=== PATIENT | female | born 2000 | race Caucasian/White ===

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

== ENCOUNTER 2020-12-01 07:57 | Emergency (ER) | payer OTHER, SELFPAY ==
[~2020-12-01] VITALS: Ht 160 cm; Wt 69.5 kg
[~2020-12-01 07:57] MED LIST: BACT800T5 PO; HYDR1OIN23 TOP; INDO50CA91 PO; MIRA3350 PO; MUPI2OI EXT; NAPR-885 PO; NEXP1IMP
--- OUTSIDE RECORDS SUMMARY | 2020-12-01 08:05 | CCD ---
Author Author [facility] Organization [facility] Address Unknown Phone Unavailable Care Team Providers Care Tuck Pointer Helper Name Role Phone Jaimie Hernández Unavailable Unavailable Re-disclosure Warning The records that you are about to access may contain information from federally-assisted alcohol or drug abuse programs. If such information is present, then the following federally mandated warning applies: This information has been disclosed to you from records protected by federal confidentiality rules (42 CFR part 2). The federal rules prohibit you from making any further disclosure of this information unless further disclosure is expressly permitted by the written consent of the person to whom it pertains or as otherwise permitted by 42 CFR part 2. A general authorization for the release of medical or other information is NOT sufficient for this purpose. The Federal rules restrict any use of the information to criminally investigate or prosecute any alcohol or drug abuse patient.The records that you are about to access may contain highly sensitive health information, the redisclosure of which is protected by Article 27-F of the [facility] Public Health law. If you continue you may have access to information: Regarding HIV / AIDS; Provided by facilities licensed or operated by the [facility] Office of Mental Health; or Provided by the [facility] Office for People With Developmental Disabilities. If such information is present, then the following [facility] mandated warning applies: This information has been disclosed to you from confidential records which are protected by state law. State law prohibits you from making any further disclosure of this information without the specific written consent of the person to whom it pertains, or as otherwise permitted by law. Any unauthorized further disclosure in violation of state law may result in a fine or long-term sentence or both. A general authorization for the release of medical or other information is NOT sufficient authorization for further disc losure. Family History Family Member Name Family Member Gender Family Member Status Date o f Status Description Data Source(s) Unknown Unknown Problem [facility] ([facility]) Encounters Encounter Providers Location Date Indications Data Source(s ) Outpatient Attender: Jaimie Edgar RODRIGUEZ 08/22/2020 12:02:05 AM ED T [facility] Medications Medication Brand Name Start Date Product Form Dose Route Admi nistrative Instructions Pharmacy Instructions Status Indications Reaction Description Data Source(s) 250 mg 11/11/2020 12:00:00 AM EST tablet 6 TAKE TWO TABLETS BY MOUTH AT ONCE ON THE FIRST DAY THEN TAKE ONE DAILY THEREAFTER TAKE TWO TABLETS BY MOUTH AT ONCE ON THE FIRST DAY THEN TAKE ONE DAILY THEREAFTER SOLD: 11/11/2020 [email or web address] 25 mcg 01/31/2020 12:00:00 AM EDT tablet 90 TAKE 1 TABLET BY MOUTH ONCE DAILY IN THE MORNING TAKE 1 TABLET BY MOUTH ONCE DAILY IN THE MORNING SOLD: 02/01/2020 [email or web address] Insurance Providers Payer name Policy type / Coverage type Policy ID Covered constitution party ID Covered constitution party's relationship to wells Policy Wells Plan Information SELF PAY ONLY [id number] SP [id number] [id number] Family Dependent [id number] [place] HU[place]NA [id number] FA2 [id number] MEDICAID [id number] SP [id number] [facility] [id number] FA2 [id number] N REGIONAL CLAIMS DIANA -O/P [id number] 19 [id number] D [facility] P [id number] P [id number]
[2020-12-01] MEDS ORDERED: DEPO150I (08:06)
[2020-12-01] MEDS ORDERED: LEVO25TA5 (08:06)
[2020-12-01] MEDS ORDERED: NS 1,000 ML IV ONE ×2 (08:30→12:15)
[2020-12-01] MEDS ORDERED: ONDANSETRON 4MG/2ML VIAL IV ONE (08:30)
--- OUTSIDE RECORDS SUMMARY | 2020-12-01 08:33 | CCD ---
Author Author [facility] Organization [facility] Address Unknown Phone Unavailable Care Team Providers Care Web Marketing Specialist Name Role Phone Jaimie Hernández Unavailable Unavailable [...] is protected by Article 27-F of the [facility] Public Health law. If you continue you may have access to information: Regarding HIV / AIDS; Provided by facilities licensed or operated by the [facility] Office of Mental Health; or Provided by the [facility] Office for People With Developmental Disabilities. If such information is present, then the following [facility] mandated warning applies: This information has been [...] law may result in a fine or [place] [facility] sentence or both. A general authorization for the release of medical or other information is NOT sufficient authorization for further disc losure. Family History Family Member Name Family Member Gender Family Member Status Date o f Status Description Data Source(s) Unknown Unknown Problem [facility] ([facility]) Encounters Encounter Providers Location Date Indications Data Source(s ) [facility]: [facility] 12:02:05 AM ED T [facility] Medications Medication Brand Name Start [...] THEN TAKE ONE DAILY THEREAFTER SOLD: 11/11/2020 [facility] 25 mcg 01/31/2020 12:00:00 AM EDT tablet 90 TAKE 1 TABLET BY MOUTH ONCE DAILY IN THE MORNING TAKE 1 TABLET BY MOUTH ONCE DAILY IN THE MORNING SOLD: 02/01/2020 [facility] Insurance Providers Payer name Policy type / Coverage type Policy ID Covered republican ID Covered republican's relationship to wells Policy Wells Plan Information [facility] HUMANA [id number] FA2 [id number] SELF PAY ONLY [id number] SP [id number] [facility] Commercial [id number] Family Dependent [id number] MEDICAID [id number] SP [id number] [facility] [id number] FA2 [id number] N REGIONAL CLAIMS DIANA -O/P [id number] 19 [id number] D [facility] [employer] [facility] [place] P [id number] P [id number]
[2020-12-01 09:08] LABS: BASO % 0.1 % (0.0-1.0); HEMOGLOBIN 13.8 g/dl (12.0-15.5); LYMPH # 0.7 10^3/uL (1.5-5.0); MEAN CORPUSCULAR HEMOGLOBIN 30.1 pg (27.0-33.0); MEAN CORPUSCULAR HGB CONC 32.9 g/dl (32.0-36.5); MEAN CORPUSCULAR VOLUME 91.5 fl (80.0-96.0); MONO % 8.4 % (0.0-5.0); NEUTROPHILS # 20.5 10^3/uL (1.5-8.5); NEUTROPHILS % 87.9 % (36.0-66.0); PLATELET COUNT, AUTOMATED 274 10^3/uL (150-450); RED BLOOD COUNT 4.59 10^6/uL (4.00-5.40); WHITE BLOOD COUNT 23.3 10^3/uL (4.0-10.0)
[2020-12-01 09:29] LABS: BLOOD UREA NITROGEN 9 MG/DL (7-18); CALCIUM LEVEL 9.4 MG/DL (8.5-10.1); CARBON DIOXIDE LEVEL 25 MEQ/L (21-32); CHLORIDE LEVEL 102 MEQ/L (98-107); CREATININE FOR GFR 0.82 MG/DL (0.55-1.30); GLOMERULAR FILTRATION RATE > 60.0 (>60); GLUCOSE, FASTING 123 MG/DL (70-100); POTASSIUM SERUM 3.7 MEQ/L (3.5-5.1); SODIUM LEVEL 135 MEQ/L (136-145)
[2020-12-01] MEDS ORDERED: cefTRIAXone SOD 1 GM in D5W MINI-BAG PLUS 50 ML IV ONE (10:30)
[2020-12-01] MEDS ORDERED: ISOVUE-370 76% 100ML VIAL As Ordered ONE (12:00)
[2020-12-01] MEDS ORDERED: ACETAMINOPHEN 325 MG TAB PO ONE (12:15)
--- NOTE | 2020-12-01 12:26 | REP ---
INDICATION: abd/low back pain fever and leukocytosis COMPARISON: None. TECHNIQUE: CT Scan of the abdomen and pelvis was performed with intravenous administration of 100 cc of Isovue 370, without oral contrast. FINDINGS: Lung bases: Unremarkable. Liver: Normal Gallbladder: Unremarkable. Spleen: Normal. Adrenals: Normal. Pancreas: Normal. Kidneys: There are scattered ill-defined nonenhancing areas in both kidneys compatible bilateral pyelonephritis. There is no hydronephrosis bilaterally. Small and large bowel: Unremarkable. Free fluid: None. Abdominal aorta: No aneurysm or dissection. Adenopathy: None. Appendix: Not inflamed. Osseous structures: Unremarkable. Pelvis: No mass. IMPRESSION: Findings compatible with bilateral pyelonephritis. <Electronically signed by Brant Main > 12/01/20 [id number]
[2020-12-01] MEDS ORDERED: LEVO750T13 PO (14:33)
[2020-12-01 14:43] VITALS: BP 111/53
== END 2020-12-01 14:47 | disposition home or self-care (01) ==
LOC: M ED 07:57
DX: N12 Tubulo-interstitial nephritis, not specified as acute or chronic (principal); N39.0 Urinary tract infection, site not specified; F17.210 Nicotine dependence, cigarettes, uncomplicated
CPT/HCPCS: 74177; 80048; 81001; 83605; 84702; 85025; 87086; 96361; 96365; 96366; 99284; J0696; J2405; Q9967; U0002

== ENCOUNTER 2020-12-02 12:56 | Emergency (ER) | payer OTHER ==
[~2020-12-02] VITALS: Ht 160 cm; Wt 68.5 kg
[~2020-12-02 12:56] MED LIST changes: +DEPO150I; +LEVO25TA5; +LEVO750T13 PO
[2020-12-02] MEDS ORDERED: NS 1,000 ML IV ONE (13:45)
[2020-12-02 14:02] LABS: BASO % 0.2 % (0.0-1.0); EOS % 0.2 % (0.0-3.0); HEMATOCRIT 39.2 % (36.0-47.0); HEMOGLOBIN 12.5 g/dl (12.0-15.5); LYMPH # 1.6 10^3/uL (1.5-5.0); LYMPH % 9.2 % (24.0-44.0); MEAN CORPUSCULAR HEMOGLOBIN 29.4 pg (27.0-33.0); MEAN CORPUSCULAR HGB CONC 31.9 g/dl (32.0-36.5); MEAN CORPUSCULAR VOLUME 92.2 fl (80.0-96.0); MONO # 2.2 10^3/uL (0.0-0.8); MONO % 12.9 % (0.0-5.0); NEUTROPHILS # 13.1 10^3/uL (1.5-8.5); PLATELET COUNT, AUTOMATED 219 10^3/uL (150-450); RED BLOOD COUNT 4.25 10^6/uL (4.00-5.40); WHITE BLOOD COUNT 17.1 10^3/uL (4.0-10.0)
[2020-12-02 14:34] LABS: ALBUMIN 2.8 GM/DL (3.2-5.2); ALT/SGPT 14 U/L (12-78); BILIRUBIN,DIRECT 0.1 MG/DL (0.0-0.2); BILIRUBIN,TOTAL 0.5 MG/DL (0.2-1.0); BLOOD UREA NITROGEN 7 MG/DL (7-18); CALCIUM LEVEL 8.5 MG/DL (8.5-10.1); CARBON DIOXIDE LEVEL 26 MEQ/L (21-32); CHLORIDE LEVEL 108 MEQ/L (98-107); CREATININE FOR GFR 0.62 MG/DL (0.55-1.30); GLOMERULAR FILTRATION RATE > 60.0 (>60); GLUCOSE, FASTING 98 MG/DL (70-100); LIPASE 48 U/L (73-393); POTASSIUM SERUM 4.4 MEQ/L (3.5-5.1); SODIUM LEVEL 137 MEQ/L (136-145); TOTAL PROTEIN 6.4 GM/DL (6.4-8.2)
[2020-12-02 16:41] VITALS: BP 118/64
== END 2020-12-02 16:44 | disposition home or self-care (01) ==
LOC: M ED 12:56
DX: N10 Acute pyelonephritis (principal); N39.0 Urinary tract infection, site not specified; K21.9 Gastro-esophageal reflux disease without esophagitis; Z79.899 Other long term (current) drug therapy; Z79.3 Long term (current) use of hormonal contraceptives

== ENCOUNTER 2020-12-26 18:52 | Emergency (ER) | payer OTHER ==
[~2020-12-26] VITALS: Ht 160 cm; Wt 66.8 kg
--- OUTSIDE RECORDS SUMMARY | 2020-12-26 18:58 | CCD ---
Author Author [facility] Organization [facility] Address Unknown Phone Unavailable Care Team Providers Care Shipfitter Helper Name Role Phone Jaimie Hernández Unavailable [...] is protected by Article 27-F of the [facility] Public Health law. If you continue you may have access to information: Regarding HIV / AIDS; Provided by facilities licensed or operated by the [facility] Office of Mental Health; or Provided by the [facility] Office for People With Developmental Disabilities. If such information is present, then the following [facility] mandated warning applies: This information has been [...] law may result in a fine or halfway sentence or both. A general authorization for the release of medical or other information is NOT sufficient authorization for further disc losure. Family History Family Member Name Family Member Gender Family Member Status Date o f Status Description Data Source(s) Unknown Unknown Problem [facility] ([facility]) Encounters Encounter Providers Location Date Indications Data Source(s ) [facility]: [facility] 12:02:05 AM ED T [facility] Medications Medication Brand Name Start Date Product Form Dose Route Admi nistrative Instructions Pharmacy Instructions Status Indications Reaction Description Data Source(s) 750 mg 12/01/2020 12:00:00 AM EST tablet 7 TAKE ONE TABLET BY MOUTH EVERY DAY TAKE ONE TABLET BY MOUTH EVERY DAY SOLD: 12/01/2020 [facility] 250 mg 11/11/2020 12:00:00 AM EST tablet 6 TAKE TWO TABLETS BY MOUTH AT ONCE ON THE FIRST DAY THEN TAKE ONE DAILY THEREAFTER TAKE TWO TABLETS BY MOUTH AT ONCE ON THE FIRST DAY THEN TAKE ONE DAILY THEREAFTER SOLD: 11/11/2020 [facility] 25 mcg 01/31/2020 12:00:00 AM EDT tablet 90 TAKE 1 TABLET BY MOUTH ONCE DAILY IN THE MORNING TAKE 1 TABLET BY MOUTH ONCE DAILY IN THE MORNING SOLD: 02/01/2020 [facility] Insurance Providers Payer name Policy type / Coverage type Policy ID Covered republican ID Covered republican's relationship to wells Policy Wells Plan Information [facility] HUMANA [id number] FA2 [id number] SELF PAY ONLY [id number] SP [id number] [facility] Commercial [id number] Family Dependent [id number] MEDICAID [id number] SP [id number] [facility] [id number] FA2 [id number] N REGIONAL CLAIMS DIANA -O/P [id number] 19 [id number] D [employer] [facility] P [id number] P [id number] Results ID Date Data Source [id number] 12/01/2020 08:52:00 AM EST [facility] Name Value Range Interpretation Code Description Data Beatrice rce(s) Supporting Document(s) SARS coronavirus 2 RNA [Presence] in Res piratory specimen by ELI with probe detection NEGATIVE [facility] This lab was ordered by [facility] a nd reported by [facility]. Procedure
[2020-12-26] MEDS ORDERED: ACETAMINOPHEN 500 MG TAB PO ONE (20:00)
--- OUTSIDE RECORDS SUMMARY | 2020-12-26 20:51 | CCD ---
Author Author [facility] Organization [facility] Address Unknown Phone Unavailable Care Team Providers Care Video Specialist Name Role Phone Jaimie Hernández Unavailable [...] is protected by Article 27-F of the [facility] Public Health law. If you continue you may have access to information: Regarding HIV / AIDS; Provided by facilities licensed or operated by the [facility] Office of Mental Health; or Provided by the [facility] Office for People With Developmental Disabilities. If such information is present, then the following [facility] mandated warning applies: This information has [...] law may result in a fine or alf sentence or both. A general authorization for the release of medical or other information is NOT sufficient authorization for further disc losure. Family History Family Member Name Family Member Gender Family Member Status Date o f Status Description Data Source(s) Unknown Unknown Problem [facility] ([facility]) Encounters Encounter Providers Location Date Indications Data Source(s ) [facility]: [facility] 12:02:05 AM ED T [facility] Medications Medication Brand Name Start Date Product Form Dose Route Admi nistrative Instructions Pharmacy Instructions Status Indications Reaction Description Data Source(s) 750 mg 12/01/2020 12:00:00 AM EST tablet 7 TAKE ONE TABLET BY MOUTH EVERY DAY TAKE ONE TABLET BY MOUTH EVERY DAY SOLD: 12/01/2020 [facility] 250 mg 11/11/2020 12:00:00 AM EST [...] ONCE DAILY IN THE MORNING SOLD: 02/01/2020 [facility] Insurance Providers Payer name Policy type / Coverage type Policy ID Covered republican ID Covered republican's relationship to wells Policy Wells Plan Information [facility] HUMANA [id number] FA2 [id number] SELF PAY ONLY [id number] SP [id number] [facility] Commercial [id number] Family Dependent [id number] MEDICAID [id number] SP [id number] [facility] [id number] FA2 [id number] N REGIONAL CLAIMS DIANA -O/P [id number] 19 [id number] D [employer] [facility] P [id number] P [id number] Results ID Date Data Source [id number] 12/01/2020 08:52:00 AM EST [facility] Name Value Range Interpretation Code Description Data Beatrice rce(s) Supporting Document(s) SARS coronavirus 2 RNA [Presence] in Res piratory specimen by ELI with probe detection NEGATIVE [facility] This lab was ordered by [facility] a nd reported by [facility]. Procedure
--- NOTE | 2020-12-26 20:59 | REPVR ---
PROCEDURE INFORMATION: Exam: XR Left Hand Exam date and time: 12/26/2020 7:01 PM Age: 20 years old Clinical indication: Pain; Hand; Left; Additional info: Injury TECHNIQUE: Imaging protocol: XR Left hand. Views: 3 or more views. COMPARISON: No relevant prior studies available. FINDINGS: Bones/joints: The osseous structures are intact. No dislocation. Soft tissues: Mild soft tissue swelling of the proximal ring finger and slight soft tissue swelling about the PIP joint of the middle finger. IMPRESSION: 1. Mild soft tissue swelling of the proximal ring finger and slight soft tissue swelling about the PIP joint of the middle finger. 2. Otherwise negative left hand. No fracture or dislocation. Electronically signed by: Heraclio Plunkett On 12/26/2020 20:59:09 PM
[2020-12-26 21:04] VITALS: BP 125/67
== END 2020-12-26 21:12 | disposition home or self-care (01) ==
LOC: M ED 18:52
DX: S67.195A Crushing injury of left ring finger, initial encounter (principal); W23.0XXA Caught, crushed, jammed, or pinched between moving objects, initial encounter; Y92.89 Other specified places as the place of occurrence of the external cause; Y99.0 Civilian activity done for income or pay

== ENCOUNTER 2020-12-29 12:43 | Emergency (ER) | payer OTHER ==
[~2020-12-29] VITALS: Ht 160 cm; Wt 66.7 kg
[2020-12-29 12:44] VITALS: BP 121/67
--- OUTSIDE RECORDS SUMMARY | 2020-12-29 12:54 | CCD ---
Author Author [facility] Organization [facility] Address Unknown Phone Unavailable Care Team Providers Care Assembler Name Role Phone Jaimie Hernández Unavailable Unavailable [...] is protected by Article 27-F of the [facility] Public Health law. If you continue you may have access to information: Regarding HIV / AIDS; Provided by facilities licensed or operated by the [facility] Office of Mental Health; or Provided by the [facility] Office for People With Developmental Disabilities. If such information is present, then the following [facility] mandated warning applies: This information has [...] law may result in a fine or intermediate sentence or both. A general authorization for the release of medical or other information is NOT sufficient authorization for further disc losure. Family History Family Member Name Family Member Gender Family Member Status Date o f Status Description Data Source(s) Unknown Unknown Problem [facility] ([facility]) Encounters Encounter Providers Location Date Indications Data Source(s ) [facility]: [facility] 12:02:[address] [facility] Medications Medication Brand Name Start Date Product Form Dose Route Admi nistrative Instructions Pharmacy Instructions Status Indications Reaction Description Data Source(s) 750 mg 12/01/2020 12:00:00 AM EST tablet 7 TAKE ONE TABLET BY MOUTH EVERY DAY TAKE ONE TABLET BY MOUTH EVERY DAY SOLD: 12/01/[address] [facility] 250 mg 11/11/2020 12:00:00 AM EST [...] ONCE DAILY IN THE MORNING SOLD: 02/01/[address] [facility] Insurance Providers Payer name Policy type / Coverage type Policy ID Covered libertarian ID Covered libertarian's relationship to wells Policy Wells Plan Information [facility] HUMANA [id number] FA2 [id number] SELF PAY ONLY [id number] SP [id number] [facility] Commercial [id number] Family Dependent [id number] MEDICAID [id number] SP [id number] [facility] [id number] FA2 [id number] N REGIONAL CLAIMS DIANA -O/P [id number] 19 [id number] D [employer] [facility] P [id number] P [id number] Results ID Date Data Source [id number] 12/01/2020 08:52:00 AM EST [facility] Name Value Range Interpretation Code Description Data Beatrice rce(s) Supporting Document(s) SARS coronavirus 2 RNA [Presence] in Res piratory specimen by ELI with probe detection NEGATIVE [facility] This lab was ordered by [facility] a nd reported by [facility]. Procedure
--- OUTSIDE RECORDS SUMMARY | 2020-12-29 13:59 | CCD ---
Author Author [facility] Organization [facility] Address Unknown Phone Unavailable Care Team Providers Care Features Reporter Name Role Phone Jaimie Hernández Unavailable Unavailable [...] is protected by Article 27-F of the [facility] Public Health law. If you continue you may have access to information: Regarding HIV / AIDS; Provided by facilities licensed or operated by the [facility] Office of Mental Health; or Provided by the [facility] Office for People With Developmental Disabilities. If such information is present, then the following [facility] mandated warning applies: This information has [...] law may result in a fine or senior care sentence or both. A general authorization for the release of medical or other information is NOT sufficient authorization for further disc losure. Family History Family Member Name Family Member Gender Family Member Status Date o f Status Description Data Source(s) Unknown Unknown Problem [facility] ([facility]) Encounters Encounter Providers Location Date Indications Data Source(s ) [facility]: [facility] 12:02:05 AM ED T [facility] Medications Medication Brand Name Start Date Product Form Dose Route Admi nistrative Instructions Pharmacy Instructions Status Indications Reaction Description Data Source(s) 750 mg 12/01/2020 12:00:00 AM EST tablet 7 TAKE ONE TABLET BY MOUTH EVERY DAY TAKE ONE TABLET BY MOUTH EVERY DAY SOLD: 12/01/2020 [facility] 250 mg 11/11/2020 12:00:00 AM EST [...] ONCE DAILY IN THE MORNING SOLD: 02/01/2020 [facility] Insurance Providers Payer name Policy type / Coverage type Policy ID Covered constitution party ID Covered constitution party's relationship to wells Policy Wells Plan Information [facility] HUMANA [id number] FA2 [id number] SELF PAY ONLY [id number] SP [id number] [facility] Commercial [id number] Family Dependent [id number] MEDICAID [id number] SP [id number] [facility] [id number] FA2 [id number] N REGIONAL CLAIMS DIANA -O/P [id number] 19 [id number] D [employer] [facility] P [id number] P [id number] Results ID Date Data Source [id number] 12/01/2020 08:52:00 AM EST [facility] Name Value Range Interpretation Code Description Data Beatrice rce(s) Supporting Document(s) SARS coronavirus 2 RNA [Presence] in Res piratory specimen by ELI with probe detection NEGATIVE [facility] This lab was ordered by [facility] a nd reported by [facility]. Procedure
== END 2020-12-29 14:30 | disposition home or self-care (01) ==
LOC: M ED 12:43
DX: S60.222A Contusion of left hand, initial encounter (principal); W23.0XXA Caught, crushed, jammed, or pinched between moving objects, initial encounter; Y92.89 Other specified places as the place of occurrence of the external cause; E03.9 Hypothyroidism, unspecified

== ENCOUNTER 2021-10-04 17:09 | Emergency (ER) | payer MEDICAID, OTHER ==
[~2021-10-04] VITALS: Ht 160 cm; Wt 69.5 kg
--- OUTSIDE RECORDS SUMMARY | 2021-10-04 17:14 | CCD ---
Author Author [facility] Organization [facility] Address Unknown Phone Unavailable Care Team Providers Care Equipment Validation Engineer Name Role Phone Feola, T Bertha PA Unavailable Unavailable Feola, T Bertha PA Unavailable Unavailable Feola, T Bertha PA Unavailable Unavailable Feola, T Bertha PA Unavailable Unavailable Feola, T Bertha PA Unavailable Unavailable Feola, T Bertha PA Unavailable Unavailable Feola, T Bertha PA Unavailable Unavailable Feola, T Bertha PA Unavailable Unavailable Feola, T Bertha PA Unavailable Unavailable Feola, T Bertha PA Unavailable Unavailable Feola, T Bertha PA Unavailable Unavailable Feola, T Bertha PA Unavailable Unavailable Feola, T Bertha PA Unavailable Unavailable Feola, T Bertha PA Unavailable Unavailable Feola, T Bertha PA Unavailable Unavailable Feola, T Bertha PA Unavailable Unavailable Feola, T Bertha PA Unavailable Unavailable Feola, T Bertha PA Unavailable Unavailable Feola, T Bertha PA Unavailable Unavailable Feola, T Bertha PA Unavailable Unavailable Feola, T Bertha PA Unavailable Unavailable Feola, T Bertha PA Unavailable Unavailable Feola, T Bertha PA Unavailable Unavailable Feola, T Bertha PA Unavailable Unavailable Feola, T Bertha PA Unavailable Unavailable Feola, T Bertha PA Unavailable Unavailable Feola, T Bertha PA Unavailable Unavailable Feola, T Bertha PA Unavailable Unavailable Feola, T Bertha PA Unavailable Unavailable Feola, T Bertha PA Unavailable Unavailable Feola, T Bertha PA Unavailable Unavailable Feola, T Bertha PA Unavailable Unavailable Feola, T Bertha PA Unavailable Unavailable Feola, T Bertha PA Unavailable Unavailable Feola, T Bertha PA Unavailable Unavailable Feola, T Bertha PA Unavailable Unavailable Feola, T Bertha PA Unavailable Unavailable Feola, T Bertha PA Unavailable Unavailable Feola, T Bertha PA Unavailable Unavailable Feola, T Bertha PA Unavailable Unavailable Feola, T Bertha PA Unavailable Unavailable Jaimie Hernández Unavailable Unavailable Re-disclosure Warning The [...] is protected by Article 27-F of the [facility] [place] Public Health law. If you continue you may have access to information: Regarding HIV / AIDS; Provided by facilities licensed or operated by the [facility] [place] Office of Mental Health; or Provided by the [facility] [place] Office for People With Developmental Disabilities. If such information is present, then the following [facility] [place] mandated warning applies: This information has been [...] law may result in a fine or chcf sentence or both. A general authorization for the release of medical or other information is NOT sufficient authorization for further disc losure. Family History Family Member Name Family Member Gender Family Member Status Date o f Status Description Data Source(s) Unknown Unknown Problem [facility] ([facility]) Encounters Encounter Providers Location Date Indications Data Source(s ) Outpatient Attender: Bertha Yepez DANIKA 021 05:15:49 PM EDT - 08/31/2021 06:54:11 PM EDT [facility] ([facility] ) Outpatient Attender: Jaimie RODRIGUEZ 08/22/2020 12:02:05 AM ED T [facility] Immunizations Vaccine Date Status Description Data Source(s) COVID-19 VACCINE Moderna 09/29/2021 12:00:00 AM EST completed [facility] Vaccine Series Complete: NOThis Data was Submitted to [facility] Via [employer]. Medications Medication Brand Name Start Date Product Form Dose Route Admi nistrative Instructions Pharmacy Instructions Status Indications Reaction Description Data Source(s) 875 mg 06/05/2021 12:00:00 AM EDT tablet 14 TAKE ONE TABLET BY MOUTH EVERY 12 HOURS FOR 7 DAYS TAKE ONE TABLET BY MOUTH EVERY 12 HOURS FOR 7 DAYS [facility] 875 mg 04/24/2021 12:00:00 AM EDT tablet 14 TAKE ONE TABLET BY MOUTH EVERY 12 HOURS FOR 7 DAYS TAKE ONE TABLET BY MOUTH EVERY 12 HOURS FOR 7 DAYS [facility] 750 mg 12/01/2020 12:00:00 AM EST tablet 7 TAKE ONE TABLET BY MOUTH EVERY DAY TAKE ONE TABLET BY MOUTH EVERY DAY SOLD: 12/01/2020 [facility] 250 mg 11/11/2020 12:00:00 AM EST tablet 6 TAKE TWO TABLETS BY MOUTH AT ONCE ON THE FIRST DAY THEN TAKE ONE DAILY THEREAFTER TAKE TWO TABLETS BY MOUTH AT ONCE ON THE FIRST DAY THEN TAKE ONE DAILY THEREAFTER SOLD: 11/11/2020 [facility] Insurance Providers Payer name Policy type / Coverage type Policy ID Covered alliance party ID Covered alliance party's relationship to wells Policy Wells Plan Information [employer] emp [id number] Employe e [id number] Needs Medical Insurance Commercial Insurance Co. [id number] Employee [id number] Medicaid Medicaid [id number] Self [id number] / [id number] Parent 00 [id number] MEDICAID [id number] SP [id number] [place] [id number] FA2 [id number] N REGIONAL CLAIMS [place] -O/P [id number] 19 [id number] D [employer] [place] P [id number] P [id number] [facility] HUMANA [id number] FA2 [id number] HUMANA [facility] REG O [id number] S [id number] SELF PAY ONLY [id number] SP [id number] [facility] Commercial [id number] Family Dependent [id number] Problems, Conditions, and Diagnoses No Information Surgeries/Procedures No Information Results ID Date Data Source [id number] 08/31/2021 06:00:00 PM EDT [facility] Name Value Range Interpretation Code Description Data Beatrice rce(s) Supporting Document(s) SARS-CoV-2 RNA Resp Ql ELI+probe DETECTED [facility] This lab was ordered by [facility] and reported by [facility]. ID Date Data Source [id number] 12/01/2020 08:52:00 AM EST [facility] Name Value Range Interpretation Code Description Data Beatrice rce(s) Supporting Document(s) SARS coronavirus 2 RNA [Presence] in Res piratory specimen by ELI with probe detection NEGATIVE [facility] This lab was ordered by [facility] a nd reported by [facility]. Procedure Social History No Information
--- NOTE | 2021-10-04 17:42 | REP ---
INDICATION: fall injury COMPARISON: None. TECHNIQUE: AP, lateral, bilateral oblique views. FINDINGS: Lateral swelling consistent with inversion injury. No acute fracture or dislocation. Ankle mortise intact. IMPRESSION: Swelling. No acute fracture or dislocation. <Electronically signed by Julio Tracy > 10/04/21 [id number]
--- OUTSIDE RECORDS SUMMARY | 2021-10-04 21:37 | CCD ---
Author Author [facility] Organization [facility] Address Unknown Phone Unavailable Care Team Providers Care Detective Sergeant Name Role Phone Feola, T Bertha PA [...] is protected by Article 27-F of the [facility] Public Health law. If you continue you may have access to information: Regarding HIV / AIDS; Provided by facilities licensed or operated by the [facility] Office of Mental Health; or Provided by the [facility] Office for People With Developmental Disabilities. If such information is present, then the following [facility] mandated warning applies: This information has [...] law may result in a fine or snf sentence or both. A general authorization for [...] EDT - 08/31/2021 06:54:11 PM EDT [facility] ([facility] ) Outpatient Attender: Jaimie RODRIGUEZ 08/22/2020 12:02:05 AM ED T [facility] Immunizations Vaccine Date Status Description Data Source(s) COVID-19 VACCINE Moderna 09/29/2021 12:00:00 AM EST completed [facility] Vaccine Series Complete: NOThis Data was Submitted to [facility] Via [employer]. Medications Medication Brand Name Start Date Product [...] Plan Information [employer] emp [id number] Employe e [id number] Needs Medical Insurance Commercial Insurance Co. 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 [id number] Medicaid Medicaid [id number] Self [id number] / [id number] Parent 00 [id number] [facility] Commercial [id number] Family Dependent [id number] MEDICAID [id number] SP [id number] [facility] [id number] FA2 [id number] N REGIONAL CLAIMS [place] -O/P [id number] 19 [id number] D [employer] [place] P [id number] P [id number] [place] [id number] SP [id number] V [id number] [place] [id number] FA2 [id number] [employer] [place] REG O [id number] S [id number] SELF PAY ONLY [id number] SP [id number] Problems, Conditions, and Diagnoses No Information Surgeries/Procedures No Information Results ID Date Data Source [id number] 08/31/2021 06:00:00 PM EDT [facility] Name Value Range Interpretation Code Description Data Beatrice rce(s) Supporting Document(s) SARS-CoV-2 RNA Resp Ql ELI+probe DETECTED [facility] This lab was ordered by [facility] and reported by [facility]. ID Date Data Source [id number] 12/01/2020 08:52:00 AM EST [facility] Name Value Range Interpretation Code Description Data Beatrice rce(s) Supporting Document(s) SARS coronavirus 2 RNA [Presence] in Res piratory specimen by ELI with probe detection NEGATIVE [facility] This lab was ordered by [facility] a nd reported by [facility]. Procedure Social History No Information
[2021-10-04 21:43] VITALS: BP 112/58
== END 2021-10-04 21:54 | disposition home or self-care (01) ==
LOC: M ED 17:09
DX: S93.402A Sprain of unspecified ligament of left ankle, initial encounter (principal); X50.9XXA Other and unspecified overexertion or strenuous movements or postures, initial encounter; Y92.018 Other place in single-family (private) house as the place of occurrence of the external cause

== ENCOUNTER 2021-10-06 00:06 | Emergency (ER) | payer MEDICAID, OTHER ==
[~2021-10-06] VITALS: Ht 160 cm; Wt 69.5 kg
[2021-10-06 00:08] VITALS: BP 133/94
[2021-10-06] MEDS ORDERED: ACET-683 PO (00:13)
[2021-10-06] MEDS ORDERED: NAPR220C14 PO (00:13)
--- OUTSIDE RECORDS SUMMARY | 2021-10-06 00:14 | CCD ---
Author Author [facility] Organization [facility] Address Unknown Phone Unavailable Care Team Providers Care Electric Transfer Operator Name Role Phone Maring, Milo PA Unavailable Unavailable Maring, Milo PA Unavailable Unavailable Maring, Milo PA Unavailable Unavailable Maring, Milo PA Unavailable Unavailable Maring, Milo PA Unavailable Unavailable Maring, Milo PA Unavailable Unavailable Maring, Milo PA Unavailable Unavailable Maring, Milo PA Unavailable Unavailable Maring, Milo PA Unavailable Unavailable Maring, Milo PA Unavailable Unavailable Maring, Milo PA Unavailable Unavailable Maring, Milo PA Unavailable Unavailable Maring, Milo PA Unavailable Unavailable Maring, Milo PA Unavailable Unavailable Maring, Milo PA Unavailable Unavailable Maring, Milo PA Unavailable Unavailable Feola, T Bertah PA Unavailable Unavailable Feola, T Bertha PA [...] is protected by Article 27-F of the [place] Public Health law. If you continue you [...] law may result in a fine or detention sentence or both. A general authorization for the release of medical or other information is NOT sufficient authorization for further disc losure. Family History Family Member Name Family Member Gender Family Member Status Date o f Status Description Data Source(s) Unknown Unknown Problem [facility] ([facility]) Encounters Encounter Providers Location Date Indications Data Source(s ) Outpatient Attender: Milo GARNICA 10/05/20 03:34:11 PM EST - 10/05/2021 04:39:15 PM EST [facility] ([facility] ) Outpatient Attender: Bertha GARNICA 021 05:15:49 PM EDT - 08/31/2021 06:54:11 PM EDT [facility] ([facility] ) Outpatient Attender: Jaimie RODRIGUEZ 08/22/2020 12:02:05 AM ED T [facility] Immunizations Vaccine Date Status Description Data Source(s) COVID-19 VACCINE Moderna 09/29/2021 12:00:00 AM EST completed [facility] Vaccine Series Complete: NOThis Data was Submitted to [facility] Via [employer]. Medications Medication Brand Name Start Date Product [...] THEN TAKE ONE DAILY THEREAFTER SOLD: 11/11/2020 [facility] Insurance Providers Payer name Policy type / Coverage type Policy ID Covered green party ID Covered green party's relationship to wells Policy Wells Plan Information Needs Medical Insurance Commercial Insurance Co. [id number] Employee [id number] [employer] emp [id number] Employe e [id number] Parent 00 [id number] Medicaid Medicaid [id number] Self [id number] / [id number] Parent 00 [id number] Medicaid Medicaid [id number] Self [id number] [place] [id number] FA2 [id number] N REGIONAL CLAIMS DIANA -O/P [id number] 19 [id number] D [employer] [place] P [id number] P [id number] [place] [id number] SP [id number] V [id number] [place] HU[place]NA [id number] FA2 [id number] [place] [place] O [id number] S [id number] SELF PAY ONLY [id number] SP [id number] Commercial [id number] Family Dependent [id number] MEDICAID [id number] SP [id number] Problems, Conditions, and Diagnoses No Information Surgeries/Procedures No Information Results ID Date Data Source [id number] 08/31/2021 06:00:00 PM EDT [facility] Name Value Range Interpretation Code Description Data Beatrice rce(s) Supporting Document(s) SARS-CoV-2 RNA Resp Ql ELI+probe DETECTED [facility] This lab was ordered by [facility] and reported by [facility]. ID Date Data Source [id number] 12/01/2020 08:52:00 AM EST [facility] Name Value Range Interpretation Code Description Data Beatrice rce(s) Supporting Document(s) SARS coronavirus 2 RNA [Presence] in Res piratory specimen by ELI with probe detection NEGATIVE [facility] This lab was ordered by [facility] a nd reported by [facility]. Procedure Social History No Information
--- OUTSIDE RECORDS SUMMARY | 2021-10-06 01:55 | CCD ---
Author Author [facility] Organization [facility] Address Unknown Phone Unavailable Care Team Providers Care Household Personal Assistant Name Role Phone Maring, Milo PA Unavailable [...] Maring, Milo PA Unavailable Unavailable Feola, T Bertha PA [...] T Bertha PA Unavailable Unavailable Feola, T Bertah PA [...] is protected by Article 27-F of the [place] Public Health law. If you continue you may have access to information: Regarding HIV / AIDS; Provided by facilities licensed or operated by the [facility] Office of Mental Health; or Provided by the [facility] Office for People With Developmental Disabilities. If such information is present, then the following [facility] mandated warning applies: This information has [...] may result in a fine or senior living sentence or both. A general authorization for [...] EST - 10/05/2021 04:39:15 PM EST [facility] ([facility] ) Outpatient Attender: Bertha GARNICA 021 05:15:49 PM EDT - 08/31/2021 06:54:11 PM EDT [facility] ([facility] ) Outpatient Attender: Jaimie RODRIGUEZ 08/22/2020 12:02:05 AM ED T [facility] Immunizations Vaccine Date Status Description Data Source(s) COVID-19 VACCINE Moderna 09/29/2021 12:00:00 AM EST completed [facility] Vaccine Series Complete: NOThis Data was Submitted to [facility] Via [employer]. Medications Medication Brand Name Start Date Product [...] Information Needs Medical Insurance Commercial [employer] Co. [id number] Employee [id number] [employer] emp [id number] Employe e [id number] / [id number] Parent 00 [id number] Medicaid Medicaid [id number] Self [id number] / [id number] Parent 00 [id number] Medicaid Medicaid [id number] Self [id number] [employer] [place] [id number] FA2 [id number] N REGIONAL CLAIMS DIANA -O/P [id number] 19 [id number] D [employer] [place] P [id number] P [id number] [place] [id number] SP [id number] V [id number] [place] [id number] FA2 [id number] [employer] [place] O [id number] S [id number] SELF PAY ONLY [id number] SP [id number] Commercial [id number] Family Dependent [id number] MEDICAID [id number] SP [id number] Problems, Conditions, and Diagnoses No Information Surgeries/Procedures No Information Results ID Date Data Source [id number] 08/31/2021 06:00:00 PM EDT [facility] Name Value Range Interpretation Code Description Data Beatrice rce(s) Supporting Document(s) SARS-CoV-2 RNA Resp Ql ELI+probe DETECTED [facility] This lab was ordered by [facility] and reported by [facility]. ID Date Data Source [id number] 12/01/2020 08:52:00 AM EST [facility] Name Value Range Interpretation Code Description Data Beatrice rce(s) Supporting Document(s) SARS coronavirus 2 RNA [Presence] in Res piratory specimen by ELI with probe detection NEGATIVE [facility] This lab was ordered by [facility] a nd reported by [facility]. Procedure Social History No Information
== END 2021-10-06 02:34 | disposition home or self-care (01) ==
LOC: M ED 00:06
DX: S93.402D Sprain of unspecified ligament of left ankle, subsequent encounter (principal); X58.XXXD Exposure to other specified factors, subsequent encounter; Y92.89 Other specified places as the place of occurrence of the external cause

== ENCOUNTER → 2025-08-13 | Outpatient (REF) | payer OTHER ==
[~2025-08-13] MED LIST changes: +ACET-683 PO; +ETON68IM; +LEVO1TAB40 PO; -LEVO750T13 PO; +NAPR220C14 PO; -NEXP1IMP
== END ==
LOC: M PLALAB 08:35
PROVIDERS: ATTEND Nurse Practitioner Family
DX: Z53.9 Procedure and treatment not carried out, unspecified reason (principal)

== ENCOUNTER → 2025-08-13 | Outpatient (CLI) | payer OTHER ==
[2025-08-13 14:04] LABS: PLATELET COUNT, AUTOMATED 319 10^3/uL (150-450)
[2025-08-13 14:42] LABS: Trichomonas vaginalis (AMP) NOT DETECTED (NEGATIVE)
[2025-08-13 15:01] LABS: HIV 1&2 SCREEN NEGATIVE (NEGATIVE)
[2025-08-13 15:05] LABS: GC DNA AMPLIFICATION NEGATIVE (NEGATIVE)
[2025-08-13 15:09] LABS: HEPATITIS C VIRUS ABY INDEX < 0.02 INDEX (<0.8)
== END ==
LOC: M PLALAB 09:00
PROVIDERS: ATTEND Nurse Practitioner Family
DX: Z34.80 Encounter for supervision of other normal pregnancy, unspecified trimester (principal); Z3A.00 Weeks of gestation of pregnancy not specified

== ENCOUNTER → 2025-10-07 | Outpatient (CLI) | payer OTHER ==
[2025-10-07 15:34] LABS: PLATELET COUNT, AUTOMATED 327 10^3/uL (150-450)
[2025-10-07 15:39] LABS: GLUCOSE CHALLENGE TEST 1 HOUR 83 MG/DL (LESS THAN 140)
[2025-10-07 16:07] LABS: HIV 1&2 SCREEN NEGATIVE (NEGATIVE)
[2025-10-07 16:14] LABS: HEPATITIS C VIRUS ABY INDEX < 0.02 INDEX (<0.8)
[2025-10-07 16:49] LABS: Trichomonas vaginalis (AMP) NOT DETECTED (NEGATIVE)
[2025-10-07 17:12] LABS: GC DNA AMPLIFICATION NEGATIVE (NEGATIVE)
== END ==
LOC: M PLALAB 12:02
PROVIDERS: ATTEND Obstetrics & Gynecology
DX: Z34.92 Encounter for supervision of normal pregnancy, unspecified, second trimester (principal)

== ENCOUNTER → 2025-10-14 | Outpatient (CLI) | payer OTHER | LOC: M WHC 11:02 | PROVIDERS: ATTEND Nurse Practitioner Family | DX: Z34.80 Encounter for supervision of other normal pregnancy, unspecified trimester (principal) ==